=== PATIENT | male | born 1935 | race Caucasian/White ===

== ENCOUNTER 2019-08-02 22:52 | Emergency (ER) | payer BC, OTHER ==
[~2019-08-02] VITALS: Ht 182.9 cm; Wt 81.6 kg
--- NOTE | 2019-08-02 23:21 | NUR ---
ESTEVAN. TO ER BED 9. AAOX4. NO RESP DISTRESS NOTED. C/O L SHOULDER PAIN. PT REPORTS THAT HE FELL OF TWO STEP WHILE GETTING OUT OF A [employer]. PT DID NOPT NOTICE THE STEPS CAUSING THE FALL. PT REPORTS PAIN ON THE L SHOULDER, HE BROKE HIS FALL USING HIS ARM. L PARIETAL AREA INJURY, NOTED BUMP BUT NO PAIN REPORTED. MD MADE AWARE, AWAITING MD FOR EVAL. RADIOLOGY AT BEDSIDE FOR PT TO BE BROUGHT FOR XRAY AND CT.
--- NOTE | 2019-08-02 23:24 | NUR ---
TO RADIOLOGY ON WHEELCHAIR
--- NOTE | 2019-08-02 23:45 | NUR ---
ICEPACK PROVIDED FOR PAIN RELIEF
--- NOTE | 2019-08-03 00:19 | NUR ---
Patient discharged to home in stable condition. Written and verbal after care instructions given. Patient verbalizes understanding of instruction. Pt ambulatory with a steady gait
[2019-08-03 00:21] VITALS: BP 150/84
== END 2019-08-03 00:28 | disposition home or self-care (01) ==
LOC: ER 22:55
DX: S42.002A Fracture of unspecified part of left clavicle, initial encounter for closed fracture (principal); S09.8XXA Other specified injuries of head, initial encounter; W01.0XXA Fall on same level from slipping, tripping and stumbling without subsequent striking against object, initial encounter; Y93.89 Activity, other specified; Y92.89 Other specified places as the place of occurrence of the external cause; Y99.8 Other external cause status
CPT/HCPCS: 70450-TC; 73030-TC